=== PATIENT | male | born 1970 | race African-American/Black ===

== ENCOUNTER 2020-08-22 12:35 | Emergency (ER) | payer OTHER ==
[2020-08-22 12:42] VITALS: BP 167/103; PULSE 89; RESP 18; TEMP 98.3
--- NOTE | 2020-08-22 13:00 | ED ---
General Adult HPI - General Chief complaint: Extremity Injury, Lower Stated complaint: R Extremity Issue Time Seen by Provider: 08/22/20 12:46 Source: patient, RN notes reviewed, old records reviewed Mode of arrival: wheelchair Limitations: physical limitation - History of Present Illness Initial comments: 49-year-old male present today with right ankle pain. He reports he rolled it 3 weeks ago. Patient states that he since that time he's had some pain with ambulation. He was a swelling and pain over the medial and lateral malleolus. He reports he said multiple ankle sprains in the past. He is reportedly followed up with orthopedic in the past. - Related Data Home Medications Medication Instructions Recorded Confirmed Unknown Blood Pressure 1 tab PO DAILY 08/22/20 08/22/20 Allergies Allergy/AdvReac Type Severity Reaction Status Date / Time acetaminophen [From Tylenol] Allergy Rash/Hives Verified 08/22/20 13:11 ibuprofen Allergy Swelling Verified 08/22/20 13:11 strawberry Allergy Swelling Verified 08/22/20 13:11 cod fish Allergy Swelling Uncoded 08/22/20 12:42 Review of Systems ROS Statement: Those systems with pertinent positive or pertinent negative responses have been documented in the HPI. ROS Other: All systems not noted in ROS Statement are negative. Past Medical History Past Medical History: Hypertension History of Any Multi-Drug Resistant Organisms: None Reported Past Surgical History: No Surgical Hx Reported Past Psychological History: No Psychological Hx Reported Smoking Status: Current every day smoker Past Alcohol Use History: Daily Past Drug Use History: Marijuana - Past Family History father Family Medical History: Hypertension General Exam - General Exam Comments Initial Comments: Well-appearing 49-year-old male. No distress. Limitations: physical limitation General appearance: alert, in no apparent distress Head exam: Present: atraumatic, normocephalic, normal inspection Eye exam: Present: normal appearance, PERRL, EOMI. Absent: scleral icterus, conjunctival injection, periorbital swelling ENT exam: Present: normal exam, mucous membranes moist Neck exam: Present: normal inspection. Absent: tenderness, meningismus, lymphadenopathy Respiratory exam: Present: normal lung sounds bilaterally. Absent: respiratory distress, wheezes, rales, rhonchi, stridor Cardiovascular Exam: Present: regular rate, normal rhythm, normal heart sounds. Absent: systolic murmur, diastolic murmur, rubs, gallop, clicks GI/Abdominal exam: Present: soft, normal bowel sounds. Absent: distended, tenderness, guarding, rebound, rigid Extremities exam: Present: normal inspection, full ROM, normal capillary refill. Absent: tenderness, pedal edema, joint swelling, calf tenderness Right Knee exam: Present: normal inspection, full ROM Lower Leg exam: Present: normal inspection, full ROM Ankle exam: Present: full ROM, tenderness, swelling (Chest tenderness and swelling over the medial and lateral malleolus). Absent: normal inspection Foot/Toe exam: Present: normal inspection, full ROM Neurovascular tendon exam: Present: no vascular compromise Gait: observed and normal Back exam: Present: normal inspection Neurological exam: Present: alert, oriented X3, CN II-XII intact Psychiatric exam: Present: normal affect, normal mood Skin exam: Present: warm, dry, intact, normal color. Absent: rash Course Vital Signs 08/22/20 12:39 Temperature 98.3 F Pulse Rate 89 Respiratory 18 Rate Blood Pressure 167/103 Procedures - Orthopedic Splinting/Casting Injury #1 Side: right Lower Extremity Injury Location: short leg Lower Extremity Immobilizer: posterior splint, stirrup splint, Johnnie wrap, synthetic pre-padded splint Medical Decision Making - Medical Decision Making This patient's a 49-year-old male who presents the ER today for evaluation with complaints of right ankle pain and swelling for the past 2 weeks after he rolled it. X-ray today shows evidence of the medial malleolus avulsion fracture. Patient is neurovascularly intact. Patient was placed in an ankle splint and advised follow-up with orthopedic. Discussed return parameters. - Radiology Data Radiology results: report reviewed Small avulsion fracture noted to arise from the medial malleolus tip with associated soft tissue swelling. Disposition Clinical Impression: Fractured medial malleolus Disposition: HOME SELF-CARE Condition: Good Instructions (If sedation given, give patient instructions): Ankle Fracture (ED) Additional Instructions: Patient has follow-up with orthopedic. Keep her foot up and elevated. Remain in splint until seen by ortho. Return to the ED if any alarming signs or symptoms occur. Is patient prescribed a controlled substance at d/c from ED?: No Referrals: None,Stated [Primary Care Provider] - 1-2 days Suhas Forbes MD [STAFF PHYSICIAN] - 1-2 days Time of Disposition: 13:22
--- NOTE | 2020-08-22 13:10 | XR ---
EXAMINATION TYPE: XR ankle complete RT DATE OF EXAM: 08/22/2020 COMPARISON: NONE HISTORY: Pain TECHNIQUE: Frontal, lateral and oblique images of the right ankle are obtained. COMPARISON: None. FINDINGS: Small avulsion avulsion fracture noted to arise from the medial malleolar tip with associat ed soft tissue swelling. Ankle mortise is intact. No additional fracture seen. IMPRESSION: Small avulsion avulsion fracture noted to arise from the medial malleolar tip with assoc iated soft tissue swelling.
[2020-08-22] MEDS ORDERED: traMADol 50 MG STARTER PACK 3 TAB BTL PO STA (13:51)
== END 2020-08-22 13:59 | disposition home or self-care (01) ==
LOC: EC 12:35
DX: S82.51XA Displaced fracture of medial malleolus of right tibia, initial encounter for closed fracture (principal); I10 Essential (primary) hypertension; F17.200 Nicotine dependence, unspecified, uncomplicated; Z79.899 Other long term (current) drug therapy; Z88.6 Allergy status to analgesic agent; Z91.013 Allergy to seafood; X50.1XXA Overexertion from prolonged static or awkward postures, initial encounter
CPT/HCPCS: 29515; 99284

== ENCOUNTER → 2021-07-23 | Outpatient (CLI) | payer OTHER ==
--- NOTE | 2021-07-23 12:14 | XR ---
Bilateral RIBS HISTORY: R07.81 pleurodynia 4 views of the ribs submitted There is a minimally displaced fracture of the left eighth rib, there is callus formation system with healing fracture at the seventh rib laterally on the left. On the right, the sixth rib laterally elvis ws a probable nondisplaced fracture callus formation suggesting healing. IMPRESSION: Bilateral rib fractures.
== END | disposition home or self-care (01) ==
LOC: RADXRMAIN 11:11
PROVIDERS: ATTEND Internal Medicine
DX: S22.43XA Multiple fractures of ribs, bilateral, initial encounter for closed fracture (principal)
CPT/HCPCS: 71110

== ENCOUNTER 2025-02-05 17:14 | Emergency (ER) | payer OTHER ==
[2025-02-05 17:29] VITALS: BP 196/116; PULSE 122; RESP 18; TEMP 98
--- NOTE | 2025-02-05 17:46 | ED ---
General Adult HPI - General Chief complaint: Alcohol Stated complaint: ETOH Time Seen by Provider: 02/05/25 17:30 Source: patient, EMS, RN notes reviewed, old records reviewed Mode of arrival: EMS - History of Present Illness Initial comments: This is a 54-year-old male who presents to the emergency department in police custody. Patient states he was walking on the street about going to a store when he tripped and fell because he has been drinking and the police came over to evaluate him and they felt he needed to be evaluated and so they brought him to the emergency department. Patient denies hitting his head or neck. Patient denies any extremity pain. Patient has any chest pain or difficulty breathing. Patient denies any problems whatsoever. Patient states he just was drinking a lot and smoking develop. - Related Data Home Medications Medication Instructions Recorded Confirmed Unknown Blood Pressure 1 tab PO DAILY 08/22/20 08/22/20 Allergies Allergy/AdvReac Type Severity Reaction Status Date / Time acetaminophen [From Tylenol] Allergy Rash/Hives Verified 08/22/20 13:11 ibuprofen Allergy Swelling Verified 08/22/20 13:11 strawberry Allergy Swelling Verified 08/22/20 13:11 cod fish Allergy Swelling Uncoded 08/22/20 12:42 Review of Systems ROS Statement: Those systems with pertinent positive or pertinent negative responses have been documented in the HPI. ROS Other: All systems not noted in ROS Statement are negative. Past Medical History Past Medical History: Unable to Obtain, Hypertension History of Any Multi-Drug Resistant Organisms: None Reported Past Surgical History: No Surgical Hx Reported Past Psychological History: No Psychological Hx Reported Smoking Status: Current every day smoker Past Alcohol Use History: Daily Past Drug Use History: Marijuana - Past Family History father Family Medical History: Hypertension General Exam - General Exam Comments Initial Comments: GENERAL: Patient is well-developed and well-nourished. Patient is nontoxic and well- hydrated and is in no acute distress. Appears intoxicated ENT: Neck is soft and supple. No significant lymphadenopathy is noted. Oropharynx is clear. Moist mucous membranes. Neck has full range of motion without eliciting any pain. EYES: The sclera were anicteric and conjunctiva were pink and moist. Extraocular movements were intact and pupils were equal round and reactive to light. Eyelids were unremarkable. PULMONARY: Unlabored respirations. Good breath sounds bilaterally. No audible rales rhonchi or wheezing was noted. CARDIOVASCULAR: There is a regular rate and rhythm without any murmurs gallops or rubs. ABDOMEN: Soft and nontender with normal bowel sounds. SKIN: Skin is clear with no lesions or rashes and otherwise unremarkable. NEUROLOGIC: Patient is alert and oriented x3. Cranial nerves II through XII are grossly intact. Motor and sensory are also intact. Normal speech, volume and content. Symmetrical smile. MUSCULOSKELETAL: Normal extremities with adequate strength and full range of motion. LYMPHATICS: No significant lymphadenopathy is noted PSYCHIATRIC: Normal psychiatric evaluation. Patient denies suicidal or homicidal ideations. Patient states he is not depressed. Course Vital Signs 02/05/25 17:28 Temperature 98 F Pulse Rate 122 H Respiratory 18 Rate Blood Pressure 196/116 O2 Sat by Pulse 98 Oximetry Medical Decision Making - Medical Decision Making Was pt. sent in by a medical professional or institution (, [facility], TRANSIT MAN, urgent care, hospital, or usp...) When possible be specific @ -No Did you speak to anyone other than the patient for history (EMS, parent, family, police, friend...)? What history was obtained from this source @ -No Did you review nursing and triage notes (agree or disagree)? Why? @ -I reviewed and agree with nursing and triage notes Were old charts reviewed (outside hosp., previous admission, EMS record, old EKG, old radiological studies, urgent care reports/EKG's, usp records)? Report findings @ -No old charts were reviewed Differential Diagnosis? @ -MDM differential EKG interpreted by me (3pts min.). @ -As above X-rays interpreted by me (1pt min.). @ -None done CT interpreted by me (1pt min.). @ -None done U/S interpreted by me (1pt. min.). @ -None done What testing was considered but not performed or refused? (CT, X-rays, U/S, labs)? Why? @ -None What meds were considered but not given or refused? Why? @ -None Did you discuss the management of the patient with other professionals (professionals i.e. DENNIS Forman, TRANSIT MAN, lab, RT, psych nurse, social sciences lecturer, supervisory it specialist, teacher, deportation officer, registered nurse hh case manager)? Give summary @ -No Was smoking cessation discussed for >3mins.? @ -No Was critical care preformed (if so, how long)? @ -No Were there social determinants of health that impacted care today? How? (Homelessness, low income, unemployed, alcoholism, drug addiction, transportation, low edu. Level, literacy, decrease access to med. care, shelter, rehab)? @ -No Was there de-escalation of care discussed even if they declined (Discuss DNR or withdrawal of care, Hospice)? DNR status @ -No What co-morbidities impacted this encounter? (DM, HTN, Smoking, COPD, CAD, Cancer, CVA, ARF, Chemo, Hep., AIDS, mental health diagnosis, sleep apnea, morbid obesity)? @ -None Was patient admitted / discharged? Hospital course, mention meds given and route, prescriptions, significant lab abnormalities, going to OR and other pertinent info. @ -I evaluated the patient he was alert and oriented x 4 patient had no complaints he was able to walk he had full movement of all 4 extremities there was no signs of trauma on his head or neck and patient had no complaints. Patient called someone to come pick him up and they were in agreement to take care of him while he was intoxicated. Undiagnosed new problem with uncertain prognosis? @ -No Drug Therapy requiring intensive monitoring for toxicity (Heparin, Nitro, Insulin, Cardizem)? @ -No Were any procedures done? @ -No Diagnosis/symptom? @ -Alcohol intoxication Acute, or Chronic, or Acute on Chronic? @ -Acute Uncomplicated (without systemic symptoms) or Complicated (systemic symptoms)? @ -Uncomplicated Side effects of treatment? @ -No Exacerbation, Progression, or Severe Exacerbation? @ -No Poses a threat to life or bodily function? How? (Chest pain, [place], [place], pneumonia, PE, COPD, DKA, ARF, appy, cholecystitis, CVA, Diverticulitis, Homicidal, Suicidal, threat to staff... and all critical care pts) @ -No Disposition Clinical Impression: Alcoholic intoxication Disposition: HOME SELF-CARE Instructions (If sedation given, give patient instructions): Alcohol Intoxication (ED), Abuse of Alcohol (ED) Additional Instructions: Patient should stop drinking Is patient prescribed a controlled substance at d/c from ED?: No Referrals: None,Stated [Primary Care Provider] - 1-2 days Forms: AMY Leslie Time of Disposition: 18:04
== END 2025-02-05 18:08 ==
LOC: EC 17:14
DX: F10.129 Alcohol abuse with intoxication, unspecified (principal); F17.200 Nicotine dependence, unspecified, uncomplicated; Z88.6 Allergy status to analgesic agent; Z91.013 Allergy to seafood; Z91.018 Allergy to other foods
CPT/HCPCS: 82075; 99284